=== PATIENT | male | born 1950 | race African-American/Black ===

== ENCOUNTER 2023-08-13 14:08 | Outpatient (CLI) | payer MEDICARE, OTHER | END 2023-08-13 14:09 | disposition home or self-care (01) | LOC: BICMRI 14:08 | PROVIDERS: ATTEND Neurological Surgery | DX: M47.812 Spondylosis without myelopathy or radiculopathy, cervical region (principal); M48.062 Spinal stenosis, lumbar region with neurogenic claudication; M47.816 Spondylosis without myelopathy or radiculopathy, lumbar region; M48.02 Spinal stenosis, cervical region | CPT/HCPCS: 72040; 72100; 72141 ==